=== PATIENT | male | born 1980 | race Caucasian/White ===

== ENCOUNTER 2017-01-29 12:34 | Emergency (ER) | payer BC, OTHER ==
[2017-01-29 12:51] VITALS: TEMP 98.4
--- NOTE | 2017-01-29 13:12 | EDPHY ---
H & P Stated Complaint: RLQ PAIN, FEVER. aLSO NECK AND BACK PAIN. - Personal History Current Tetanus/Diphtheria Vaccine: Yes Current Tetanus Diphtheria and Acellular Pertussis (TDAP): Yes - Medical/Surgical History Hx Asthma: No Hx Chronic Respiratory Disease: No Hx Diabetes: No Hx Cardiac Disease: No Hx Renal Disease: No Hx Cirrhosis: No Hx Alcoholism: No Hx HIV/AIDS: No Hx Splenectomy or Spleen Trauma: No Other PMH: DENIES - Social History Smoking Status: Never smoked Time Seen by Provider: 01/29/17 12:58 HPI/ROS: CHIEF COMPLAINT: Lower abdominal pain since yesterday HISTORY OF PRESENT ILLNESS: 28-year-old male generally healthy arrives via private vehicle complaining of right lower quadrant, testicle pain since yesterday. He saw Dr. López Corbett this morning and was cleared from a urologic perspective. Dr. López Corbett called Dr. Hunter while in the ER to alert him of the patient's arrival in the ED for evaluation of right lower quadrant pain. The pain is reproducible with palpation and movement. Complaining of subjective fever and chills. He denies: Nausea, vomiting, melena, hematochezia , perineal pain, straddle injury, genital trauma, mass PCP: Dr. Vincent Cheung REVIEW OF SYSTEMS: A ten point review of systems was performed and is negative with the exception of the items mentioned in the HPI PAST MEDICAL & SURGICAL HISTORY: No pertinent medical or surgical history SOCIAL HISTORY: nonsmoker PHYSICAL EXAM (Prior to examination, patient consented to physical exam, hands were washed and my usual and customary physical exam procedures followed) 1) GENERAL: Well-developed, well-nourished, alert and oriented. Appears is uncomfortable 2) HEAD: Normocephalic, atraumatic 3) HEENT: Pupils equal, round, reactive to light bilaterally. Sclera anicteric. Nasopharynx, oropharynx, clear, no lesions. Moist mucous membrane 4) NECK: Full range of motion, no meningeal signs. 5) LUNGS: Clear auscultation bilaterally, no wheezes, no rhonchi, no retractions. 6) HEART: Regular rate and rhythm, no murmur, no heave, no gallop. 7) ABDOMEN: No guarding, no rebound, no focal tenderness, positive McBurney's point pain negative Anthony's, negative Rovsing's, negative peritoneal sign, positive bilateral inguinal pain with no mass. No inguinal mass. 8) MUSCULOSKELETAL: Moving all extremities, no focal areas of tenderness, no obvious trauma. No peripheral edema or discoloration. 9) BACK: No CVA tenderness, no midline vertebral tenderness, no fluctuance, no step-off, no obvious trauma, no visual or palpable abnormality. 10) SKIN: No rash, no petechiae. 11) : Bilateral testicles tender, cremasteric reflex present and brisk. Perineal examination unremarkable no tenderness. Scrotal appearance is normal with no evidence of Jasson's gangrene. No crepitus. 12) RECTAL: Normal rectal tone, no gross prostatic abnormality DIFFERENTIAL DIAGNOSIS: My differential diagnosis includes, but is not limited to, acute appendicitis, acute cholecystitis, bowel obstruction, acute pancreatitis,testicular torsion, gastritis and urinary tract infection. The patient understands that this diagnosis is provisional and can never be 100% accurate. This is a partial list of diagnoses considered. These considerations are based on history, physical exam, past history and reassessment. (Agnieszka Cabrales) Constitutional: Initial Vital Signs Temperature (C) 36.9 C 01/29/17 12:47 Heart Rate 87 01/29/17 12:47 Respiratory Rate 01/29/17 12:47 Blood Pressure 124/89 H 01/29/17 12:47 O2 Sat (%) 99 01/29/17 12:47 O2 Delivery Mode Room Air Allergies/Adverse Reactions: No Known Allergies Allergy (Unverified 01/29/17 12:47) Home Medications: Medication Instructions Recorded Hydrocodone/APAP 5/325 [[place] 1 tab PO Q6 PRN #15 tab 01/29/17 5/325 (RX)] levOFLOXACIN [Levaquin] 500 mg PO DAILY #7 tablet 01/29/17 Medical Decision Making - Diagnostics Imaging Results: Imaging Impressions Abdomen CT 01/29/17 13:09 Impression: 1. Hypodense mass in the right lobe of the liver measuring 4 x 3.5 cm, nonspecific. Recommend follow-up MRI of the abdomen multiphase hemangioma protocol with contrast. 2. Appendix not identified although no secondary evidence of appendicitis. 3. No urinary tract obstruction, nephrolithiasis, or pyelonephritis. Recommendation: Follow-up MRI of the abdomen multiphase hemangioma protocol for further evaluation of 4 x 3.5 cm hepatic lesion. Findings and recommendations discussed with Emergency Department physician's clinical trials assistant, Agnieszka Cabrales, at 1445 hours, 01/29/2017. Final report concurs with initial preliminary interpretation. Cosign: Dr. Jv Rodriguez. Testicular Ultrasound 01/29/17 13:21 Impression: 1. No intratesticular masses. 2. No testicular torsion. 3. Small left hydrocele. 4. Bilateral benign scrotal calcified pearls. Findings and recommendations discussed with Emergency Department physician, ANGELA NEIL at 14:13 hour, 01/29/2017. Final report concurs with initial preliminary interpretation. Imaging Impressions Abdomen CT 01/29/17 13:09 Impression: 1. Hypodense mass in the right lobe of the liver measuring 4 x 3.5 cm, nonspecific. Recommend follow-up MRI of the abdomen multiphase hemangioma protocol with contrast. 2. Appendix not identified although no secondary evidence of appendicitis. 3. No urinary tract obstruction, nephrolithiasis, or pyelonephritis. Recommendation: Follow-up MRI of the abdomen multiphase hemangioma protocol for further evaluation of 4 x 3.5 cm hepatic lesion. Findings and recommendations discussed with Emergency Department physician's clinical trials assistant, Agnieszka Cabrales, at 1445 hours, 01/29/2017. Final report concurs with initial preliminary interpretation. Cosign: Dr. Jv Rodriguez. Testicular Ultrasound 01/29/17 13:21 Impression: 1. No intratesticular masses. 2. No testicular torsion. 3. Small left hydrocele. 4. Bilateral benign scrotal calcified pearls. Findings and recommendations discussed with Emergency Department physician, ANGELA NEIL at 14:13 hour, 01/29/2017. Final report concurs with initial preliminary interpretation. Images reviewed by myself (Agnieszka Cabrales) ED Course/Re-evaluation: 2:50 p.m.: Re-evaluation, discussed his imaging results. Re-examined the patient, he remains exquisitely tender to palpation right lower quadrant. He has a nonvisualized appendix on imaging. Plan will be general surgery consultation. 3:01 p.m.: Phone consultation Dr. Vincent Olivia who will consult 4:04 p.m.: Consultation with Dr. Vincent Olivia. Please see his independent consultation note; however, briefly was felt Dr. Olivia that the patient's symptoms were secondary to inflammation at the epididymal appendix in the recommended course of fluoroquinolones (STD not suspected), noted to have tenderness at the epididymal appendix, follow up with Urology, supportive undergarments. Patient will be prescribed Levaquin and recommend he follow up with Dr. López Corbett. 4:44 p.m.: Reviewed the patient's urinalysis negative for pyuria or bacteriuria. Plan will be discharged with Levaquin. Follow-up plan as before. I have also reviewed with him his findings of hepatic lesion possible hemangioma the importance of follow-up for this with his primary care provider who can arrange for further follow-up. (Agnieszka Cabrales) Other Provider: PHYSICIAN DOCUMENTATION: The patient was evaluated and managed by the Physician Crew Car Driver and myself. I have reviewed the chart and in addition, I examined the patient myself at 1315. History confirmed as symptoms since last night, with lower abdominal and groin pain. Called by Dr. Corbett just before the patient's arrival who had evaluated the patient personally in the office, and felt he had a low suspicion for primary emergent urologic problem except for some epididymal tenderness. Physical findings as follows: Some lower abdominal tenderness without rebound or guarding. Some testicular tenderness without evidence of external or skin abnormality. Abdominal pelvic CT, testicular ultrasound. 1413: [place], testicular ultrasound shows left hydrocele otherwise normal. CT shows no evidence appendicitis, plan for surgical consultation. I am the secondary supervising physician. (Angela Neil) - Data Points Laboratory Results: Laboratory Results 01/29/17 13:10 01/29/17 13:10 01/29/17 01/29/17 01/29/17 16:15 13:10 13:10 WBC 8.21 10^3/uL 10^3/uL (3.80-9.50) RBC 5.34 10^6/uL 10^6/uL (4.40-6.38) Hgb 15.8 g/dL g/dL (13.7-17.5) POC Hgb Hct 43.7 % % (40.0-51.0) POC Hct MCV 81.8 fL fL (81.5-99.8) MCH 29.6 pg pg (27.9-34.1) MCHC 36.2 g/dL g/dL (32.4-36.7) RDW 12.5 % % (11.5-15.2) Plt Count 207 10^3/uL 10^3/uL (150-400) MPV 10.4 fL fL (8.7-11.7) Neut % (Auto) 80.0 % H % (39.3-74.2) Lymph % (Auto) 11.6 % L % (15.0-45.0) [place] % (Auto) 7.6 % % (4.5-13.0) Eos % (Auto) 0.2 % L % (0.6-7.6) Baso % (Auto) 0.4 % % (0.3-1.7) Nucleat RBC Rel Count 0.0 % % (0.0-0.2) Absolute Neuts (auto) 6.57 10^3/uL H 10^3/uL (1.70-6.50) Absolute Lymphs (auto) 0.95 10^3/uL L 10^3/uL (1.00-3.00) Absolute Monos (auto) 0.62 10^3/uL 10^3/uL (0.30-0.80) Absolute Eos (auto) 0.02 10^3/uL L 10^3/uL (0.03-0.40) Absolute Basos (auto) 0.03 10^3/uL 10^3/uL (0.02-0.10) Absolute Nucleated RBC 0.00 10^3/uL 10^3/uL (0-0.01) Immature Gran % 0.2 % % (0.0-1.1) Immature Gran # 0.02 10^3/uL 10^3/uL (0.00-0.10) POC Sodium Sodium 137 mEq/L mEq/L (134-144) POC Potassium Potassium 3.8 mEq/L mEq/L (3.5-5.2) POC Chloride Chloride 103 mEq/L mEq/L (97-110) Carbon Dioxide 20 mEq/l L mEq/l (22-31) Anion Gap 14 mEq/L mEq/L (8-16) POC BUN BUN 14 mg/dL mg/dL (7-23) Creatinine 0.9 mg/dL mg/dL (0.7-1.3) POC Creatinine Estimated GFR > 60 Glucose 92 mg/dL mg/dL (70-100) POC Glucose Calcium 10.2 mg/dL mg/dL (8.5-10.4) Total Bilirubin 1.9 mg/dL H mg/dL (0.1-1.4) Conjugated Bilirubin 0.3 mg/dL mg/dL (0.0-0.5) Unconjugated Bilirubin 1.6 mg/dL H mg/dL (0.0-1.1) AST 25 IU/L IU/L (17-59) ALT 34 IU/L IU/L (21-72) Alkaline Phosphatase 60 IU/L IU/L (38-126) Total Protein 8.0 g/dL g/dL (6.3-8.2) Albumin 4.7 g/dL g/dL (3.5-5.0) Lipase 46 IU/L IU/L (23-300) Urine Color YELLOW Urine Appearance CLEAR Urine pH 8.0 H (5.0-7.5) Ur Specific [place] > 1.035 H (1.002-1.030) Urine Protein NEGATIVE (NEGATIVE) Urine Ketones 2+ H (NEGATIVE) Urine Blood NEGATIVE (NEGATIVE) Urine Nitrate NEGATIVE (NEGATIVE) Urine Bilirubin NEGATIVE (NEGATIVE) Urine Urobilinogen NEGATIVE EU EU (0.2-1.0) Ur Leukocyte Esterase NEGATIVE (NEGATIVE) Urine Glucose NEGATIVE (NEGATIVE) 01/29/17 13:08 WBC RBC Hgb POC Hgb 16.3 gm/dL gm/dL (13.7-17.5) Hct POC Hct 48 % % (40-51) MCV MCH MCHC RDW Plt Count MPV Neut % (Auto) Lymph % (Auto) [place] % (Auto) Eos % (Auto) Baso % (Auto) Nucleat RBC Rel Count Absolute Neuts (auto) Absolute Lymphs (auto) Absolute Monos (auto) Absolute Eos (auto) Absolute Basos (auto) Absolute Nucleated RBC Immature Gran % Immature Gran # POC Sodium 140 mEq/L mEq/L (134-144) Sodium POC Potassium 3.5 mEq/L mEq/L (3.3-5.0) Potassium POC Chloride 104 mEq/L mEq/L (97-110) Chloride Carbon Dioxide Anion Gap POC BUN 14 mg/dL mg/dL (7-23) BUN Creatinine POC Creatinine 0.9 mg/dL mg/dL (0.7-1.3) Estimated GFR Glucose POC Glucose 97 mg/dL mg/dL (70-100) Calcium Total Bilirubin Conjugated Bilirubin Unconjugated Bilirubin AST ALT Alkaline Phosphatase Total Protein Albumin Lipase Urine Color Urine Appearance Urine pH Ur Specific [place] Urine Protein Urine Ketones Urine Blood Urine Nitrate Urine Bilirubin Urine Urobilinogen Ur Leukocyte Esterase Urine Glucose Medications Given: Discontinued Medications Hydromorphone HCl (Dilaudid) 0.5 mg IVP EDNOW ONE Stop: 01/29/17 13:40 Last Admin: 01/29/17 14:27 Dose: Not Given Sodium Chloride (Ns) 1,000 mls @ 0 mls/hr IV ONCE ONE PRN Reason: Wide Open Stop: 01/29/17 13:17 Last Admin: 01/29/17 13:20 Dose: 1,000 mls Ketorolac Tromethamine (Toradol) 15 mg IVP EDNOW ONE Stop: 01/29/17 13:17 Last Admin: 01/29/17 13:20 Dose: 15 mg Levofloxacin (Levaquin) 500 mg PO EDNOW ONE PRN Reason: Protocol Stop: 01/29/17 16:08 Last Admin: 01/29/17 16:53 Dose: 500 mg Lorazepam (Ativan Injection) 1 mg IVP EDNOW ONE Stop: 01/29/17 13:40 Last Admin: 01/29/17 14:27 Dose: Not Given Point of Care Test Results: 01/29/17 13:08 POC Sodium 140 POC Potassium 3.5 POC Chloride 104 POC BUN 14 POC Creatinine 0.9 POC Glucose 97 Departure - Departure Disposition: Home, Routine, Self-Care Clinical Impression: Epididymitis Condition: Good Instructions: Epididymitis (ED) Additional Instructions: Return to the ER if you develop new or worsening pain, if you develop fevers or chills or any other symptoms that concern you. You also need follow-up for a lesion seen in your liver on CT scan. Your primary care provider can discuss this further and arrange for further follow-up. Referrals: López Corbett MD [Medical Doctor] - 2-3 days without fail Vincent Cheung MD [Medical Doctor] - 5-7 days, call for appt. Prescriptions: Hydrocodone/APAP 5/325 [[place] 5/325 (RX)] 1 tab PO Q6 PRN #15 tab PRN Reason: Pain, Severe levOFLOXACIN [Levaquin] 500 mg PO DAILY #7 tablet
[2017-01-29] MEDS ORDERED: KETOROLAC 15 MG/1 ML SDV IVP ONE (13:16)
[2017-01-29] MEDS ORDERED: NS 1,000 ML IV ONE ×2 (13:16→15:07)
[2017-01-29 13:19] LABS: % IMMATURE GRANULYOCYTES 0.2 % (0.0-1.1); ABSOLUTE IMMATURE GRANULOCYTES 0.02 10^3/uL (0.00-0.10); ADD DIFF? NO; ADD MORPH? NO; ADD SCAN? NO; ATYPICAL LYMPHOCYTE FLAG 20 (0-99); FRAGMENT RBC FLAG 0 (0-99); HEMATOCRIT 43.7 % (40.0-51.0); HEMOGLOBIN 15.8 g/dL (13.7-17.5); LEFT SHIFT FLG 0 (0-99); LIPEMIA HEMOLYSIS FLAG 90 (0-99); MEAN CELL HEMOGLOBIN 29.6 pg (27.9-34.1); MEAN CELL HEMOGLOBIN CONCENTR. 36.2 g/dL (32.4-36.7); MEAN CELL VOLUME 81.8 fL (81.5-99.8); MEAN PLATELET VOLUME 10.4 fL (8.7-11.7); PLATELET CLUMPS FLAG 0 (0-99); PLATELET COUNT 207 10^3/uL (150-400); RED BLOOD CELL COUNT 5.34 10^6/uL (4.40-6.38); RED CELL DISTRIBUTION WIDTH 12.5 % (11.5-15.2)
[2017-01-29] MEDS ORDERED: IOPAMIDOL (ISOVUE-300) 100 ML BTL ONE (13:35)
[2017-01-29 13:36] LABS: ALANINE AMINOTRANSFERASE 34 IU/L (21-72); ALBUMIN 4.7 g/dL (3.5-5.0); ALKALINE PHOSPHATASE 60 IU/L (38-126); ANION GAP 14 mEq/L (8-16); ASPARTATE AMINOTRANSFERASE 25 IU/L (17-59); BILIRUBIN,TOTAL 1.9 mg/dL (0.1-1.4); BILIRUBIN-CONJUGATED 0.3 mg/dL (0.0-0.5); BILIRUBIN-UNCONJUGATED 1.6 mg/dL (0.0-1.1); CALCIUM 10.2 mg/dL (8.5-10.4); CARBON DIOXIDE 20 mEq/l (22-31); CHLORIDE 103 mEq/L (97-110); CREATININE 0.9 mg/dL (0.7-1.3); GLOMERULAR FILTRATION RATE > 60; GLUCOSE 92 mg/dL (70-100); POTASSIUM 3.8 mEq/L (3.5-5.2); SODIUM 137 mEq/L (134-144)
[2017-01-29] MEDS ORDERED: HYDROmorphONE/DILAUDID 1 MG/ML INJ IVP ONE (13:39)
[2017-01-29] MEDS ORDERED: LORazepam 2 MG/ML INJ IVP ONE (13:39)
[2017-01-29 16:24] LABS: COLOR YELLOW; LEUKOCYTE ESTERASE,URINE NEGATIVE (NEGATIVE); NITRITE,URINE NEGATIVE (NEGATIVE)
[2017-01-29 16:52] VITALS: BP 118/62; PULSE 75; RESP 18; O2SAT 94
--- NOTE | 2017-01-29 17:05 | GCON ---
[f rep st] CONSULTATION REFERRING PROVIDER: YONY Campos REFERRING PHYSICIAN: Dale Ramos MD. REASON FOR CONSULTATION: Abdominal/scrotal pain of uncertain etiology. HISTORY: The patient is a 36-year-old white male who at 2 p.m. yesterday had the onset of a dull suprapubic region "ache." It also involved both testicles, but more on the right at the upper end of the testicle. That morning, he had a neck and back massage and felt loopy and lightheaded, initially attributed to that massage. He did have dinner, including chicken and vegetables in normal portions and ate well. Later that evening, he developed nausea and did not feel well at all. Nonetheless, he did sleep. He woke up, felt tired, and decided to sleep in. He got up at 9:30 in the morning and did faint. He complained of dizziness and nausea and had "the shivers." He had no breakfast, as he was not hungry. He called a friend who is a physician, who recommend that he get this issue sorted out. He went to Urology for evaluation. A urinalysis was okay at that point. He was getting to the point where he did not feel comfortable walking around. His pain became worse last evening and progressed. He described it as feeling of general "torn muscles" or "blue balls." He has not recently had an upper respiratory tract infection. He has not had diarrhea. He has had no prior similar symptoms. He has had no abdominal surgery. In the last 6 months, he has not traveled outside the [place] or had antibiotic therapy. No history of inflammatory bowel disease. His last stool was yesterday afternoon and had no impact on his discomfort. There is no history of rheumatic fever, tuberculosis, hepatitis, transfusions. SOCIAL HISTORY: He is a nonsmoker. He has a beer every few weeks. ALLERGIES: He has no known drug allergies. MEDICATIONS: He uses an albuterol inhaler very intermittently, but does not take other medications. PAST SURGICAL HISTORY: His only surgery has been wisdom tooth extraction. REVIEW OF SYSTEMS: He wears lenses for visual correction. He does have a history of a concussion. He has chronic sinusitis. He does have exercise- induced asthma. He has seasonal allergies, and occasionally he has problems with swallowing, getting food impacted in his esophagus. He tries to relax then the food passes on its own. He has not sought an evaluation for this issue yet. No limitations on his activities. No history of steroid use. PHYSICAL EXAMINATION: GENERAL: He is awake and alert and quite pleasant. HEENT: Skull is normocephalic and atraumatic. LYMPH NODES: There are tender lymph nodes in his neck in the cervical and supraclavicular regions. I do not detect any axillary lymphadenopathy. He certainly has shotty inguinal lymph nodes, which are tender. LUNGS: Clear to auscultation. BACK: Unremarkable. CARDIAC: Shows S1, S2 to be normal. ABDOMEN: Soft. He is minimally tender with cough in the suprapubic region. Palpation of his abdomen shows no distinct tenderness. Bowel sounds are normal. Psoas and obturator signs are negative. : His scrotum is unremarkable except for the top of his right epididymis. I think he has an inflamed appendix epididymis, which we could now diagnose as he had been given pain medication which has decreased his generalized discomfort. IMAGING DATA: His CT was with contrast but poorly timed. He does have what appears to be a "[place]-sized" hemangioma in the right lobe of his liver. He does have mesenteric lymphadenopathy. LABORATORY DATA: His white count is 8.2 with 80.6% neutrophils. His hematocrit is 43. His platelet count is 207. His total bilirubin is 1.9; his indirect is 1.6. His transaminases are okay. The urinalysis is pending. IMPRESSION: At this point, I would suggest several diagnoses. I think the reason for his discomfort and pain, which brought him here, is the epididymitis/ appendix epididymitis. I think there is a secondary issue of mesenteric adenitis. 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 Esophageal spasm can be evaluated as an outpatient. RECOMMENDATIONS: I recommend we provide supportive care with supportive underwear, use of a heating pad, antiinflammatories, and potentially 10 days of Cipro. I would ask him to follow up with his urologist if resolution does not occur. For the other issues, he will follow up with his family doctor. /[id number]/MODL MTDD
== END 2017-01-29 16:57 | disposition home or self-care (01) ==
PROC: 3E0337Z Introduction of Electrolytic and Water Balance Substance into Peripheral Vein, Percutaneous Approach (ICD-10-PCS; principal; 2017-01-29)
DX: N45.1 Epididymitis (principal)
CPT/HCPCS: 82947-QW; 96374; J1885; Q9967